=== PATIENT | female | born 1965 | race Two or more races ===

== ENCOUNTER 2016-09-23 22:17 | Emergency (ER) | payer OTHER ==
[~2016-09-23] VITALS: Ht 160 cm; Wt 77.1 kg
[2016-09-23 22:55] LABS: *BILIRUBIN,URIN NEGATIVE (NEGATIVE); *BLOOD, URINE Trace-intact (NEGATIVE); *CLARITY,URINE SLIGHTLY CLOUDY (CLEAR); *COLOR,URINE YELLOW (YELLOW); *KETONES,URINE NEGATIVE (NEGATIVE); *PROTEIN,URINE NEGATIVE (NEGATIVE); *UROBILINOGEN,URINE 0.2 E.U./dl (NORMAL); NITRITE, URINE NEGATIVE (NEGATIVE); UGLUCOSE NEGATIVE (NEGATIVE)
[2016-09-23 22:57] LABS: LEUKOCYTE ESTERASE ,URINE TRACE (NEGATIVE)
[2016-09-23 22:59] LABS: BACTERIA,URINE MODERATE /HPF (NONE SEEN); RBC,URINE 0-3 /HPF (0-3); SQUAMOUS EPITHELIAL CELL,UR MODERATE /HPF (NONE SEEN)
[2016-09-23] MEDS ORDERED: IV NORMAL SALINE 500 ML IV ONE (23:15)
[2016-09-23 23:43] LABS: CREATININE 0.9 mg/dL (0.6-1.3); POTASSIUM 3.5 mmol/L (3.5-5.1)
[2016-09-23 23:43] LABS: *URINE HCG, QUAL NEGATIVE (NEGATIVE)
[2016-09-23 23:45] LABS: BASOPHILS % (AUTO) 0.7 % (0.0-2.0); EOSINOPHILS # (AUTO) 0.1 K/uL (0.0-0.7); HEMATOCRIT 38.3 % (31.2-41.9); LYMPHOCYTES # (AUTO) 3.6 K/uL (20.0-40.0); MEAN CORPUSCULAR HEMOGLOBIN 28.7 uug (24.7-32.8); MEAN CORPUSCULAR HGB CONC 34 g/dL (32.3-35.6); MEAN CORPUSCULAR VOLUME 84.4 fL (75.5-95.3); MONOCYTES # (AUTO) 0.5 K/uL (2.0-10.0); MONOCYTES % (AUTO) 6.7 % (0.0-11.0); NEUTROPHILS # (AUTO) 2.8 K/uL (1.8-8.9); NEUTROPHILS % (AUTO) 39.6 % (38.5-71.5); PLATELET COUNT (AUTO) 288 K/uL (179-408); RED BLOOD CELL COUNT(AUTO) 4.54 MIL/uL (3.63-4.92)
[2016-09-23 23:49] LABS: ALBUMIN 3.8 g/dL (3.4-5.0); BILIRUBIN,TOTAL 0.4 mg/dL (0.2-1.0); TOTAL PROTEIN, SERUM 7.3 g/dL (6.4-8.2)
[2016-09-24] MEDS ORDERED: NORMAL SALINE FLUSH 10 ML DISP.SYRIN ONE (00:15)
[2016-09-24] MEDS ORDERED: IOHEXOL 300MG/ML 100 ML INFUS..BTL ONE (00:15)
[2016-09-24] MEDS ORDERED: IV NORMAL SALINE 250 ML IV ONE (00:15)
[2016-09-24] MEDS ORDERED: CIPROFLOXACIN HCL 250 MG TABLET PO ONE (01:45)
[2016-09-24] MEDS ORDERED: CIPROFLOXACIN HCL 250 MG TABLET ONE (01:50)
--- NOTE | 2016-09-24 01:56 | NUR ---
Patient discharged to home in stable conditon. Written and verbal after care instructions given. Patient verbalizes understanding of instructions.
== END 2016-09-24 01:57 | disposition home or self-care (01) ==
LOC: ER 22:20
DX: N39.0 Urinary tract infection, site not specified (principal)
CPT/HCPCS: 36415; 70030-TC; 84703; 85025; 85610; 93005; A4663; J3490; J7040; J7050; Q9967